=== PATIENT | male | born 1960 | race Caucasian/White ===

== ENCOUNTER 2017-05-14 07:25 | Emergency (ER) | payer MEDICAID ==
[~2017-05-14] VITALS: Ht 170.2 cm; Wt 92.1 kg
[2017-05-14 07:34] VITALS: BP 131/87
[2017-05-14] MEDS ORDERED: IBUPROFEN 600 MG TABLET PO ONE ×2 (09:27→09:30)
== END 2017-05-14 09:31 | disposition home or self-care (01) ==
LOC: ER 07:27
DX: M70.51 Other bursitis of knee, right knee (principal)
CPT/HCPCS: 73564-TC; A4606; Z7610